=== PATIENT | female | born 1995 | race Two or more races ===

== ENCOUNTER 2016-10-30 06:29 | Day surgery (SDC) | payer OTHER ==
[~2016-10-30] VITALS: Ht 165.1 cm; Wt 140.6 kg
[~2016-10-30 06:29] MED LIST: ACETAMINOPHEN INTRAVENOUS 100 ML IV ONE; CEFAZOLIN 2GM PREMIX 50 ML IV PRN
[2016-10-30] MEDS ORDERED: PROCHLORPERAZINE 10 MG/2 ML VIAL. IV PRN (07:00)
[2016-10-30] MEDS ORDERED: FENTANYL PF 100 MCG/2 ML VIAL. IV PRN ×2 (07:00)
[2016-10-30] MEDS ORDERED: MORPHINE SULFATE 2 MG/ML DISP.SYRIN. IV PRN (07:00)
[2016-10-30] MEDS ORDERED: ONDANSETRON PF 4 MG/2 ML VIAL. IV PRN (07:00)
[2016-10-30] MEDS ORDERED: HYDROMORPHONE 2 MG/ML VIAL. IV PRN (07:00)
[2016-10-30] MEDS ORDERED: LIDOCAINE 1% 1 ML SYRINGE. ID PRN (07:00)
[2016-10-30] MEDS ORDERED: LIDOCAINE 2% 100 MG/5 ML DISP.SYRIN. ONE (07:19)
[2016-10-30] MEDS ORDERED: DEXAMETHASONE SOD PHOS 20 MG/5 ML VIAL. ONE (07:19)
[2016-10-30] MEDS ORDERED: FAMOTIDINE 20 MG/2 ML VIAL ONE (07:19)
[2016-10-30] MEDS ORDERED: FENTANYL PF 100 MCG/2 ML VIAL. ONE ×2 (07:19→08:12)
[2016-10-30] MEDS ORDERED: PROPOFOL 20 ML IV ONE (07:19)
[2016-10-30] MEDS ORDERED: ONDANSETRON PF 4 MG/2 ML VIAL. ONE (07:19)
[2016-10-30] MEDS ORDERED: ROCURONIUM 50 MG/5 ML VIAL. ONE (07:20)
[2016-10-30] MEDS ORDERED: SUCCINYLCHOLINE 200 MG/10 ML VIAL. ONE (07:20)
[2016-10-30] MEDS ORDERED: MIDAZOLAM HCL 2 MG/2 ML VIAL. ONE (07:32)
[2016-10-30] MEDS: IV RINGERS,LACTATED 1000ML 1,000 ML IV SCH ×2 (07:39→09:01)
[2016-10-30] MEDS ORDERED: SURGICEL HEMOSTAT 4X8 EACH. ONE (07:51)
[2016-10-30] MEDS ORDERED: BUPIVACAINE-EPI 0.25%-1:200000 MPF 30 ML VIAL. ONE (07:52)
[2016-10-30] MEDS ORDERED: IOHEXOL 300 MG/ML 50 ML VIAL. ONE (07:52)
[2016-10-30 07:58] LABS: NEG OBC UR NEG; POS OBC UR POS
[2016-10-30] MEDS ORDERED: NEOSTIGMINE METHYLSULFATE 5 MG/5 ML SYRINGE. ONE (08:23)
[2016-10-30] MEDS ORDERED: GLYCOPYRROLATE 1 MG/5 ML VIAL. ONE (08:23)
[2016-10-30] MEDS ORDERED: KETOROLAC 60 MG/2 ML SYRINGE FOR OR. ONE (08:23)
[2016-10-30] MEDS ORDERED: SEVOFLURANE 31 TO 60 MINUTES. IH ONE (08:27)
[2016-10-30] MEDS ORDERED: DESFLURANE 31 TO 60 MINUTES IH ONE (08:27)
--- NOTE | 2016-10-30 08:30 | PDOC ---
BRIEF OPERATIVE NOTE Date: Oct 30, 2016 Pre-Op Diagnosis Chronic cholecystitis Post-Op Diagnosis Same Procedure Performed L/S Cholecystectomy Surgeon Rip Anesthesia Type: General Blood Loss 10ml Specimens Obtained Gallbladder Findings As above Complications None JAMILA DE LA ROSA MD Oct 30, 2016 08:30
--- NOTE | 2016-10-30 08:31 | DISCH ---
DISCHARGE INSTRUCTIONS Condition on Discharge Condition on Discharge: Stable Activity After Discharge Activity Instructions for Disc: Avoid exertion Other activity instructions: No lifting >20lbs for 2 weeks Diet after Discharge Diet after Discharge: Low Fat Wound Incision Care Other wound/incision instructi: May shower in 24 hours Contacting the after DC Call your doctor for: If your condition worsens Follow-Up Follow up with: Dr De La Rosa in 2 weeks JAMILA DE LA ROSA MD Oct 30, 2016 08:31
[2016-10-30] MEDS ORDERED: OXYCODONE/APAP 5/325 TABLET. PO ONE (09:15)
[2016-10-30] MEDS ORDERED: IBUP200T43 PO (09:17)
[2016-10-30] MEDS ORDERED: ONDA4TAB7 PO (09:17)
[2016-10-30] MEDS ORDERED: RANI300T3 PO (09:17)
[2016-10-30] MEDS ORDERED: METF500T4 PO (09:17)
[2016-10-30] MEDS ORDERED: BUPR150T15 PO (09:17)
[2016-10-30] MEDS ORDERED: ZOLP5TAB PO (09:17)
[2016-10-30] MEDS ORDERED: OXYC-323 PO (09:28)
--- NOTE | 2016-10-30 09:32 | OP ---
DATE OF SURGERY: 10/30/2016 PREOPERATIVE DIAGNOSIS: Chronic cholecystitis. POSTOPERATIVE DIAGNOSIS: Chronic cholecystitis. PROCEDURE: Laparoscopic cholecystectomy. SURGEON: Tobi De La Rosa M.D. INDICATIONS: The patient is a 21-year-old female who has had right upper quadrant abdominal pain, postprandial nausea and an ultrasound showing mildly thickened gallbladder wall. Procedure of laparoscopic cholecystectomy was explained to the patient in detail. Risks, benefits were also discussed including bleeding, infection, injury to intraabdominal contents, possibly sustaining further open operations. Alternatives of this procedure were also discussed with the patient who seemed to understand and gave verbal and written consent to have the procedure performed. DESCRIPTION OF PROCEDURE: The patient was taken to the operating room and placed in the supine position, general anesthesia was initiated. Once the patient was asleep and intubated, her abdomen was prepped and draped in usual sterile fashion using ChloraPrep. An area just below the umbilicus injected 0.25% Marcaine with epinephrine. Incision was made with an 11 blade scalpel and a Veress needle was placed within the abdomen. Pneumoperitoneum was achieved. Once this was completed, an 11 mm port was placed and a 5 mm camera was placed within the abdomen. Abdomen was inspected. No other abnormalities were noted. At this point, three 5 mm ports were then placed under direct visualization, one in the epigastrium, 2 in the right upper quadrant. The dome of the gallbladder was grasped and retracted cephalad. The infundibulum of the gallbladder was grasped and retracted laterally exposing the triangle of Calot. The adherent tissues of the triangle were taken down exposing the cystic duct and cystic artery. Both were doubly clipped and transected. The gallbladder was taken off the liver with hook electrocautery, placed in EndoCatch bag and removed from the umbilicus. Right upper quadrant was irrigated and suctioned dry. Hemostasis seemed to be appropriate and the pneumoperitoneum was reduced. All ports were removed. Fascial defect at the umbilicus closed with [id number] 0 Vicryl suture and the skin was reapproximated at all port sites with 4-0 subcuticular Monocryl. Mastisol, Steri-Strips and Band-Aids were applied as dressings. The patient was awakened, extubated in the operating room, taken to recovery in stable condition. All sponge, instrument counts listed as correct. Estimated blood loss 10 mL. TOBI DE LA ROSA MD DR: LOVE/hanna JOB#: [id number] / [id number] BRIELLE Cobian MD
[2016-10-30 09:55] VITALS: BP 131/66
--- NOTE | 2016-11-02 13:23 | PATHOLOGY ---
PATHOLOGY REPORT * * * * * * * * FINAL DIAGNOSIS: Gallbladder, laparoscopic cholecystectomy: - Cholelithiasis. - Cholesterolosis, focal. - Chronic cholecystitis. COMMENT: There is no evidence of malignancy. (JPM:csd; d/t: 11/02/2016) REPORT ELECTRONICALLY SIGNED BY: Flynn Segovia M.D. DATE/TIME: 11/02/2016 13:22 * * * * * * * * GROSS PATHOLOGY: Received in formalin labeled "Felipa Feliz, gallbladder and its contents," is a 6.6 x 3.1 x 3.0 cm, intact gallbladder with pink-stauffer purple serosal surfaces. Opening the gallbladder reveals a velvety, bile-stained mucosa and an average wall thickness of 0.1 cm. Calculi are present displaying a yellow-aragon and nodular appearance, and no masses are noted grossly. [employer] sections from the body and fundus are submitted along with the proximal margin in cassette A1. (CAA; 10/30/2016) INITIAL CPT CODE(S): A; 98800 Professional services performed [place] [address] Technical services performed by [facility] at [address] [place] [address] [address], [place] [address]. SPECIMEN(S) RECEIVED: A.Gallbladder and contents CLINICAL HISTORY: None provided PATIENT: FELIPA FELIZ /AGE: 1208/03/1995 (Age: 21) PATIENT #: [id number] ALT CASE #: SPECIMEN COLLECTION DATE: 10/30/2016 SPECIMEN RECEIVED DATE: 10/30/2016 [id number] [place] [id number] - PHONE: [phone] * * * END OF REPORT * * *
== END 2016-10-30 10:14 | disposition home or self-care (01) ==
LOC: SURG 06:29
PROVIDERS: ATTEND Surgery
DX: K81.1 Chronic cholecystitis (principal); E66.9 Obesity, unspecified; F32.9 Major depressive disorder, single episode, unspecified
CPT/HCPCS: 36415; 47562; 81025; 83036; 88304; C1782; J0131; J0330; J0690; J1100; J1885; J2250; J2405; J2704; J2710; J3010; J3490; J7030; J7120; S0028; Q9967; J2001